=== PATIENT | female | born 1945 | race Caucasian/White ===

== ENCOUNTER 2017-08-26 08:46 | Inpatient (IN) | payer MEDICARE ==
[~2017-08-26] VITALS: Ht 162.6 cm; Wt 130.2 kg
[~2017-08-26 08:46] MED LIST: ATOR40TA PO; BUPR150T8 PO; CARI350T PO; CHOL400T57 PO; DILT120C51 PO; DIPH50CA3 PO; DOCU100C41 PO; HYDR-3972 PO; NITR100C11 PO; PARO10TA85 PO; SIME125C43 PO; ZOLP12.543 PO; acetaminophen 325mg tablet PO ONE; ceFAZolin inj. 3,000 MG in normal saline 100ml IV soln 100 ML IV ONE; famotidine 20mg tablet PO ONE; gabapentin 300mg capsule PO ONE; oxyCODONE SR 10mg (sust. release) tab PO ONE; ringers solution, lacted 1,000 ML IV SCH; tranexamic acid inj. 1,000 MG in normal saline 100ml IV soln 90 ML IV ONE
[2017-08-26] MEDS ORDERED: bacitracin inj 150,000 UNIT in sodium chloride irrig. sol 3,000 ML IR ONE (09:00)
== END 2017-08-26 09:30 | disposition home or self-care (01) | DRG 554 ==
LOC: PAS IN 08:46 → EDSTATUS 10:30
PROVIDERS: ADMIT Specialist; ATTEND Specialist
DX: M16.11 Unilateral primary osteoarthritis, right hip (principal); Z68.42 Body mass index [BMI] 45.0-49.9, adult; J45.909 Unspecified asthma, uncomplicated; M25.751 Osteophyte, right hip; K21.9 Gastro-esophageal reflux disease without esophagitis; E66.3 Overweight; Z53.09 Procedure and treatment not carried out because of other contraindication; F32.9 Major depressive disorder, single episode, unspecified; Z90.49 Acquired absence of other specified parts of digestive tract; Z98.891 History of uterine scar from previous surgery; Z98.49 Cataract extraction status, unspecified eye; Z88.8 Allergy status to other drugs, medicaments and biological substances; Z91.018 Allergy to other foods; Z79.899 Other long term (current) drug therapy; Z87.11 Personal history of peptic ulcer disease; Z87.891 Personal history of nicotine dependence
CPT/HCPCS: J0690; J7030; J7120

== ENCOUNTER 2017-09-23 07:30 | Inpatient (IN) | payer MEDICARE ==
[~2017-09-23] VITALS: Ht 162.6 cm; Wt 130.4 kg
[~2017-09-23 07:30] MED LIST changes: -NITR100C11 PO; -acetaminophen 325mg tablet PO ONE; -ceFAZolin inj. 3,000 MG in normal saline 100ml IV soln 100 ML IV ONE; -famotidine 20mg tablet PO ONE; -gabapentin 300mg capsule PO ONE; -oxyCODONE SR 10mg (sust. release) tab PO ONE; -ringers solution, lacted 1,000 ML IV SCH; -tranexamic acid inj. 1,000 MG in normal saline 100ml IV soln 90 ML IV ONE
[2017-10-03 12:20] LABS: BASOPHILS % (AUTO) 0.4 % (0-1); EOSINOPHILS # (AUTO) 0.1 X10'3 (0-0.9); EOSINOPHILS % (AUTO) 1.6 % (0-6); LYMPHOCYTES # (AUTO) 1.4 X10'3 (1.1-4.8); LYMPHOCYTES % (AUTO) 24.2 % (21-51); MEAN CORPUSCULAR HGB CONC 34.2 % (33.0-36.5); MEAN CORPUSCULAR VOLUME 87.8 FL (78-98); MEAN PLATELET VOLUME 8.9 FL (7.4-10.4); MONOCYTES # (AUTO) 0.4 X10'3 (0-0.9); MONOCYTES % (AUTO) 7.3 % (2-12); NEUTROPHILS # (AUTO) 3.8 X10'3 (1.8-7.7); NEUTROPHILS % (AUTO) 66.5 % (42-75); PRE OP HEMATOCRIT 39.4 % (35.0-45.0); PRE OP HEMOGLOBIN 13.5 g/dL (12.0-16.0); PRE OP PLATELET COUNT 240 X10'3 (140-440); RED BLOOD COUNT 4.48 X10'6 (4.20-5.60); RED CELL DISTRIBUTION WIDTH 15.3 % (11.5-14.5)
[2017-10-03 12:21] LABS: CLARITY,URINE SLIGHTLY CLOUDY (Clear); COLOR,URINE YELLOW (Yellow); GLUCOSE, URINE NEGATIVE (Neg); KETONES,URINE NEGATIVE (Neg); LEUKOCYTE ESTERASE ,URINE SMALL (Neg); NITRITES, URINE NEGATIVE (Neg); OCCULT BLOOD,URINE NEGATIVE (Neg); PROTEIN,URINE NEGATIVE (Neg); UROBILINOGEN,URINE 0.2 E.U/dL (0.2-1.0)
[2017-10-03 12:22] LABS: UA COLLECTION TYPE CLN CATCH MIDSTREAM
[2017-10-03 12:30] LABS: SQUAMOUS EPITHELIAL CELL,UR MODERATE /LPF (FEW)
[2017-10-03 12:31] LABS: HEMOGLOBIN A1C 6.2 % (4.5-6.2)
[2017-10-03 12:31] LABS: HYALINE CASTS >30 /LPF (NEGATIVE); MUCUS STRANDS FEW /LPF (Neg)
[2017-10-03 12:38] LABS: BACTERIA,URINE FEW /HPF (Neg); CAL OXALATE CRYSTALS 3+ /HPF (NEGATIVE); RBC,URINE 0-2 /HPF (0-2)
[2017-10-03 12:42] LABS: ALBUMIN 3.6 G/DL (3.4-5.0); ALKALINE PHOSPHATASE 87 IU/L (46-116); BLOOD UREA NITROGEN 17 MG/DL (7-18); BUN/CREATININE RATIO 15.9 (6.6-38.0); CALCIUM 9.2 MG/DL (8.5-10.1); CHLORIDE 104 MMOL/L (99-107); CREATININE 1.07 MG/DL (0.40-0.90); PRE OP ALT 22 U/L (30-65); PRE OP ANION GAP 7 (8-16); PRE OP AST 17 U/L (10-37); PRE OP BILIRUB, TOTAL 0.9 MG/DL (0.0-1.0); PRE OP GLUCOSE 130 MG/DL (70-104); PRE OP POTASSIUM 3.7 MMOL/L (3.4-5.1); PRE OP SODIUM 142 MMOL/L (135-145); TOTAL CARBON DIOXIDE 31.5 MMOL/L (24-32); TOTAL PROTEIN 7.2 G/DL (6.4-8.2); eGFR 51 ML/MIN
[2017-10-03 12:48] LABS: PRE OP PROTIME 10.1 SECONDS (9.0-12.0)
[2017-10-04] MEDS ORDERED: PANT-47 PO (10:37)
[2017-10-06] MEDS ORDERED: tranexamic acid inj. 1,000 MG in normal saline 100ml IV soln 90 ML IV ONE (10:55)
[2017-10-07] VITALS (18 sets, daily range): BP systolic 89–144; BP diastolic 47–79
[2017-10-07] MEDS ORDERED: ringers solution, lacted 1,000 ML IV SCH ×2 (05:00→14:55)
[2017-10-07] MEDS ORDERED: oxyCODONE SR 10mg (sust. release) tab PO ONE (05:30)
[2017-10-07] MEDS ORDERED: gabapentin 300mg capsule PO ONE (05:30)
[2017-10-07] MEDS ORDERED: tranexamic acid inj. 1,000 MG in normal saline 100ml IV soln 90 ML IV ONE (05:30)
[2017-10-07] MEDS ORDERED: vancomycin inj 1,500 MG in normal saline 300ml IV soln IV ONE (05:30)
[2017-10-07] MEDS ORDERED: ceFAZolin inj. 3,000 MG in normal saline 100ml IV soln 100 ML IV ONE (05:30)
[2017-10-07] MEDS ORDERED: famotidine 20mg tablet PO ONE (05:30)
[2017-10-07] MEDS ORDERED: acetaminophen 325mg tablet PO ONE (05:30)
[2017-10-07] MEDS ORDERED: LIDOcaine 1% (10mg/ml) 2ml vial ONE (12:43)
[2017-10-07] MEDS ORDERED: bacitracin inj 150,000 UNIT in sodium chloride irrig. sol 3,000 ML IR ONE ×2 (13:00→15:15)
[2017-10-07] MEDS ORDERED: ROPIVAcaine 0.5% (5mg/ml) 30ml vial ONE (13:38)
[2017-10-07] MEDS ORDERED: tetracaine 1% (10mg/ml) pres. free inj. ONE (13:44)
[2017-10-07] MEDS ORDERED: MIDAZolam 5mg/5ml vial ONE (13:45)
[2017-10-07] MEDS ORDERED: fentaNYL/PF 50MCG/1 ML 2ML syringe ONE (13:45)
[2017-10-07] MEDS ORDERED: propofol inj 20 ML IV ONE ×2 (14:08)
[2017-10-07] MEDS ORDERED: ePHEDrine 50MG/ML INJ. ONE ×2 (14:28→16:00)
[2017-10-07] MEDS ORDERED: morphine 4 MG/ML inj SYRINge IV PRN ×2 (14:55)
[2017-10-07] MEDS ORDERED: ondansetron/PF 4mg/2ml inj IV PRN ×3 (14:55→16:10)
[2017-10-07] MEDS ORDERED: fentaNYL/PF 50MCG/1 ML 2ML syringe IV PRN ×2 (14:55)
[2017-10-07] MEDS ORDERED: labetalol 5mg/ml 20ml inj. IV PRN (14:55)
[2017-10-07] MEDS ORDERED: hydrALAZINE 20mg/ml inj. IV PRN (14:55)
[2017-10-07] MEDS ORDERED: diphenhydrAMINE 50 mg/ml inj IV PRN (15:00)
[2017-10-07] MEDS ORDERED: albumin (Human) 5% 250ml 250 ML IV ONE ×2 (15:51)
[2017-10-07] MEDS ORDERED: MESSAGE TO PHARMACY PO ONE (16:10)
[2017-10-07] MEDS ORDERED: HYDROmorphone inj. 0.5 MG/0.5 ML DISP.SYRIN IV PRN (16:10)
[2017-10-07] MEDS ORDERED: dextrose ORAL solution 15 GM/59 ML bottle PO PRN ×2 (16:10)
[2017-10-07] MEDS ORDERED: glucagon, human recombinant 1mg kit SUBCUT PRN (16:10)
[2017-10-07] MEDS ORDERED: diphenhydrAMINE 25mg capsule PO PRN (16:10)
[2017-10-07] MEDS ORDERED: magnesium hydroxide 30ml (MOM) UD suspension PO PRN (16:10)
[2017-10-07] MEDS ORDERED: acetaminophen 325mg tablet PO PRN (16:10)
[2017-10-07] MEDS ORDERED: dextrose 50%-water 50ml dispensing syringe IV PRN ×2 (16:10)
[2017-10-07] MEDS ORDERED: insulin Lispro (HumaLOG) vial - multi-dose SQ SCH (16:10)
[2017-10-07] MEDS ORDERED: bisacodyl 10mg suppository rectal RC PRN (16:10)
[2017-10-07] MEDS ORDERED: oxyCODONE/APAP 10/325mg tablet PO PRN (16:15)
[2017-10-07] MEDS ORDERED: vancomycin/NS 1 GM ADD-VANTAGE 250 ML IV SCH (20:00)
[2017-10-07] MEDS: insulin glargine (Lantus) pen - multi-dose SQ SCH (21:00)
[2017-10-07] MEDS: celeCOXIB 100mg capsule PO SCH (21:20)
[2017-10-07] MEDS: ascorbic acid 500mg tablet PO SCH (21:20)
[2017-10-07] MEDS: atorvastatin 20mg tablet PO SCH (21:20)
[2017-10-07] MEDS: pantoprazole 40mg Tablet.DR PO SCH (21:21)
[2017-10-07] MEDS: sennosides 8.6mg tablet PO SCH (21:23)
[2017-10-08] MEDS: potassium cl 20mEq in 1/2 NS 1,000 ML IV SCH ×4 (00:08→19:12)
[2017-10-08] MEDS: oxyCODONE/APAP 10/325mg tablet PO PRN ×3 (00:12→17:16)
[2017-10-08] MEDS: cefazolin 1gm/NS 100mL 100 ML IV SCH ×2 (00:12→10:28)
[2017-10-08 02:00] VITALS: BP 142/55
[2017-10-08 05:00] VITALS: BP 125/64
[2017-10-08 05:39] LABS: BASOPHILS % (AUTO) 0 % (0-1); EOSINOPHILS % (AUTO) 0.3 % (0-6); HEMATOCRIT 32.8 % (35.0-45.0); HEMOGLOBIN 11.1 g/dl (12.0-16.0); LYMPHOCYTES # (AUTO) 0.5 X10'3 (1.1-4.8); LYMPHOCYTES % (AUTO) 4.4 % (21-51); MEAN CORPUSCULAR HEMOGLOBIN 29.8 PG (27.0-31.0); MEAN CORPUSCULAR HGB CONC 33.8 % (33.0-36.5); MEAN PLATELET VOLUME 9.2 FL (7.4-10.4); MONOCYTES # (AUTO) 0.5 X10'3 (0-0.9); MONOCYTES % (AUTO) 4.6 % (2-12); NEUTROPHILS # (AUTO) 9.6 X10'3 (1.8-7.7); NEUTROPHILS % (AUTO) 90.7 % (42-75); PLATELET COUNT 195 X10'3 (140-440); RED BLOOD COUNT 3.73 X10'6 (4.20-5.60); RED CELL DISTRIBUTION WIDTH 14.7 % (11.5-14.5); WHITE BLOOD COUNT 10.6 X10'3 (4.5-11.0)
[2017-10-08 06:05] LABS: ANION GAP 9 (8-16); CHLORIDE 105 MMOL/L (99-107); POTASSIUM 3.9 MMOL/L (3.5-5.1); SODIUM 140 MMOL/L (135-145)
[2017-10-08] MEDS: multivitamins, therapeutics tablet PO SCH (08:13)
[2017-10-08] MEDS: diltiazem CD 120mg capsule (once-daily) PO SCH (08:13)
[2017-10-08] MEDS: celeCOXIB 100mg capsule PO SCH ×2 (08:13→19:11)
[2017-10-08] MEDS: ascorbic acid 500mg tablet PO SCH ×2 (08:13→19:11)
[2017-10-08] MEDS: buPROPion SR 150mg tablet PO SCH (08:13)
[2017-10-08 08:20] LABS: INR 1.1 INR; PROTHROMBIN TIME 10.9 SECONDS (9.0-12.0)
[2017-10-08 10:00] VITALS: BP 96/45
[2017-10-08] MEDS ORDERED: warfarin 10mg tablet PO ONE (10:00)
[2017-10-08] MEDS ORDERED: mag hydrox/Alum hydrox/simeth 30ml oral suspension PO PRN (12:35)
[2017-10-08 18:37] VITALS: BP 127/43
[2017-10-08] MEDS: insulin glargine (Lantus) pen - multi-dose SQ SCH (21:00)
[2017-10-08] MEDS: atorvastatin 20mg tablet PO SCH (21:03)
[2017-10-08] MEDS: sennosides 8.6mg tablet PO SCH (21:04)
[2017-10-08] MEDS: pantoprazole 40mg Tablet.DR PO SCH (21:04)
[2017-10-08] MEDS: diphenhydrAMINE 25mg capsule PO PRN (21:07)
[2017-10-08 22:20] VITALS: BP 116/46
[2017-10-09] MEDS: oxyCODONE/APAP 10/325mg tablet PO PRN ×3 (05:24→19:45)
[2017-10-09 06:00] VITALS: BP 124/44
[2017-10-09 06:04] LABS: BASOPHILS % (AUTO) 0.2 % (0-1); EOSINOPHILS # (AUTO) 0.3 X10'3 (0-0.9); EOSINOPHILS % (AUTO) 3.6 % (0-6); HEMATOCRIT 30.7 % (35.0-45.0); HEMOGLOBIN 10.6 g/dl (12.0-16.0); LYMPHOCYTES # (AUTO) 1.1 X10'3 (1.1-4.8); LYMPHOCYTES % (AUTO) 13.1 % (21-51); MEAN CORPUSCULAR HEMOGLOBIN 30.1 PG (27.0-31.0); MEAN CORPUSCULAR HGB CONC 34.5 % (33.0-36.5); MEAN CORPUSCULAR VOLUME 87.5 FL (78-98); MEAN PLATELET VOLUME 8.8 FL (7.4-10.4); MONOCYTES # (AUTO) 0.8 X10'3 (0-0.9); MONOCYTES % (AUTO) 9.1 % (2-12); NEUTROPHILS # (AUTO) 6.2 X10'3 (1.8-7.7); PLATELET COUNT 169 X10'3 (140-440); RED BLOOD COUNT 3.51 X10'6 (4.20-5.60); WHITE BLOOD COUNT 8.4 X10'3 (4.5-11.0)
[2017-10-09] MEDS: multivitamins, therapeutics tablet PO SCH (07:59)
[2017-10-09] MEDS: diltiazem CD 120mg capsule (once-daily) PO SCH (07:59)
[2017-10-09] MEDS: buPROPion SR 150mg tablet PO SCH (07:59)
[2017-10-09] MEDS: ascorbic acid 500mg tablet PO SCH ×2 (07:59→19:44)
[2017-10-09] MEDS: celeCOXIB 100mg capsule PO SCH ×2 (07:59→19:45)
[2017-10-09 14:00] VITALS: BP 111/48
[2017-10-09] MEDS ORDERED: acetaminophen 325mg tablet PO PRN (16:10)
[2017-10-09 16:28] LABS: INR 1.3 INR; PROTHROMBIN TIME 13.4 SECONDS (9.0-12.0)
[2017-10-09 17:45] VITALS: BP 141/73
[2017-10-09] MEDS: sennosides 8.6mg tablet PO SCH (19:43)
[2017-10-09] MEDS: pantoprazole 40mg Tablet.DR PO SCH (19:43)
[2017-10-09] MEDS: atorvastatin 20mg tablet PO SCH (19:44)
[2017-10-09] MEDS: diphenhydrAMINE 25mg capsule PO PRN (19:49)
[2017-10-09] MEDS ORDERED: warfarin 7.5mg tablet PO ONE (21:00)
[2017-10-09] MEDS: insulin glargine (Lantus) pen - multi-dose SQ SCH (21:00)
[2017-10-09 22:06] VITALS: BP 121/61
[2017-10-10] MEDS: oxyCODONE/APAP 10/325mg tablet PO PRN (04:34)
[2017-10-10 05:59] LABS: INR 1.3 INR; PROTHROMBIN TIME 13.5 SECONDS (9.0-12.0)
[2017-10-10 06:00] VITALS: BP 123/55
[2017-10-10 06:02] LABS: BASOPHILS % (AUTO) 0.2 % (0-1); EOSINOPHILS # (AUTO) 0.3 X10'3 (0-0.9); EOSINOPHILS % (AUTO) 3.8 % (0-6); HEMATOCRIT 29.5 % (35.0-45.0); HEMOGLOBIN 10.1 g/dl (12.0-16.0); LYMPHOCYTES # (AUTO) 1.6 X10'3 (1.1-4.8); LYMPHOCYTES % (AUTO) 21.5 % (21-51); MEAN CORPUSCULAR HGB CONC 34.3 % (33.0-36.5); MEAN CORPUSCULAR VOLUME 87.4 FL (78-98); MEAN PLATELET VOLUME 9.3 FL (7.4-10.4); MONOCYTES # (AUTO) 0.8 X10'3 (0-0.9); MONOCYTES % (AUTO) 9.9 % (2-12); NEUTROPHILS # (AUTO) 4.9 X10'3 (1.8-7.7); NEUTROPHILS % (AUTO) 64.6 % (42-75); PLATELET COUNT 179 X10'3 (140-440); RED BLOOD COUNT 3.37 X10'6 (4.20-5.60); RED CELL DISTRIBUTION WIDTH 14.9 % (11.5-14.5); WHITE BLOOD COUNT 7.6 X10'3 (4.5-11.0)
[2017-10-10] MEDS ORDERED: ASPI-41 PO (08:27)
[2017-10-10] MEDS: ascorbic acid 500mg tablet PO SCH (09:25)
[2017-10-10] MEDS: celeCOXIB 100mg capsule PO SCH (09:25)
[2017-10-10] MEDS: multivitamins, therapeutics tablet PO SCH (09:25)
[2017-10-10] MEDS: diltiazem CD 120mg capsule (once-daily) PO SCH (09:25)
[2017-10-10] MEDS: buPROPion SR 150mg tablet PO SCH (09:25)
[2017-10-10 10:00] VITALS: BP 119/60
[2017-10-10] MEDS ORDERED: warfarin 10mg tablet PO ONE (21:00)
== END 2017-10-10 14:49 | disposition home health service (06) | DRG 470 ==
LOC: PAS IN 10-07 12:04 → EDSTATUS 10-07 14:30 → ORTHO 4S 10-07 18:00
PROVIDERS: ADMIT Specialist; ATTEND Specialist
PROC: 0SR904Z Replacement of Right Hip Joint with Ceramic on Polyethylene Synthetic Substitute, Open Approach (ICD-10-PCS; principal; 2017-10-07 13:40)
DX: M16.11 Unilateral primary osteoarthritis, right hip (principal); Z68.42 Body mass index [BMI] 45.0-49.9, adult; E11.22 Type 2 diabetes mellitus with diabetic chronic kidney disease; N18.3 Chronic kidney disease, stage 3 (moderate); E66.01 Morbid (severe) obesity due to excess calories; D62 Acute posthemorrhagic anemia; I12.9 Hypertensive chronic kidney disease with stage 1 through stage 4 chronic kidney disease, or unspecified chronic kidney disease; R21 Rash and other nonspecific skin eruption; J45.909 Unspecified asthma, uncomplicated; E78.5 Hyperlipidemia, unspecified; K21.9 Gastro-esophageal reflux disease without esophagitis; F32.9 Major depressive disorder, single episode, unspecified; Z90.49 Acquired absence of other specified parts of digestive tract; Z88.8 Allergy status to other drugs, medicaments and biological substances; Z79.899 Other long term (current) drug therapy; Z87.891 Personal history of nicotine dependence; Z86.718 Personal history of other venous thrombosis and embolism; Z71.3 Dietary counseling and surveillance
CPT/HCPCS: 36415; 73502; 80051; 80053; 81001; 82948; 83036; 85025; 85610; 85730; 86870; 86885; 86900; 86901; 86920; 86922; 87070; 87088; 97110; 97116; 97162; 97530; A4565; A6212; A6253; A6449; A6455; A7000; C1758; C1776; J0690; J1815; J2250; J2704; J2795; J3010; J3370; J3490; J7030; J7120; P9045; Q0163

== ENCOUNTER 2018-09-15 07:55 | Inpatient (IN) | payer MEDICARE | END 2018-09-17 15:30 | disposition home health service (06) | LOC: PAS IN 07:55 → ORTHO 4S 14:45 | DX: M17.12 Unilateral primary osteoarthritis, left knee (principal); D62 Acute posthemorrhagic anemia; M21.162 Varus deformity, not elsewhere classified, left knee; Z86.718 Personal history of other venous thrombosis and embolism ==